=== PATIENT | male | born 1990 | race Caucasian/White ===

== ENCOUNTER 2020-09-17 10:20 | Emergency (ER) | payer OTHER ==
[~2020-09-17] VITALS: Ht 172.7 cm; Wt 59.0 kg
[2020-09-17] MEDS ORDERED: NAPROSYN500 M1 PO (11:44)
[2020-09-17 12:13] VITALS: BP 132/68
== END 2020-09-17 12:13 | disposition home or self-care (01) ==
LOC: M.ERS 10:20
DX: S93.401A Sprain of unspecified ligament of right ankle, initial encounter (principal); X58.XXXA Exposure to other specified factors, initial encounter; Y93.89 Activity, other specified; Y92.89 Other specified places as the place of occurrence of the external cause; Y99.8 Other external cause status